=== PATIENT | female | born 1955 | race Caucasian/White ===

== ENCOUNTER → 2024-03-14 08:11 | Outpatient (REF) | payer OTHER, SELFPAY | LOC: HWRAD 08:11 | PROVIDERS: ATTENDING PHYSICIAN Obstetrics & Gynecology; FAMILY PHYSICIAN Family Medicine | DX: Z78.0 Asymptomatic menopausal state (principal); Z12.31 Encounter for screening mammogram for malignant neoplasm of breast | CPT/HCPCS: 77063; 77067; 77080 ==

== ENCOUNTER → 2024-09-17 15:52 | Outpatient (REF) | payer OTHER, SELFPAY | LOC: HWRCS 15:52 | PROVIDERS: ATTENDING PHYSICIAN Internal Medicine Cardiovascular Disease; FAMILY PHYSICIAN Family Medicine | DX: I35.1 Nonrheumatic aortic (valve) insufficiency (principal); I34.0 Nonrheumatic mitral (valve) insufficiency | CPT/HCPCS: 93306 ==

== ENCOUNTER → 2025-08-19 13:08 | Outpatient (REF) | payer OTHER, SELFPAY | LOC: HWWDC 13:08 | PROVIDERS: ATTENDING PHYSICIAN Obstetrics & Gynecology; FAMILY PHYSICIAN Nurse Practitioner Family | DX: Z12.31 Encounter for screening mammogram for malignant neoplasm of breast (principal) | CPT/HCPCS: 77063; 77067 ==

== ENCOUNTER 2025-09-29 12:38 | Emergency (ER) | payer OTHER, SELFPAY ==
[2025-09-29 13:04] VITALS: BP 149/80
[2025-09-29 13:24] LABS: Hematocrit 35.1 % (37.0-47.0); Hemoglobin 11.5 g/dL (12.0-16.0); Mean Corp Hgb Conc. 32.8 g/dL (33.0-37.0); Mean Corpuscular Volume 91.6 fL (81.0-99.0); Nucleated Red Blood Cells % 0 %; Platelet Count 205 10^3/uL (130-400); Red Cell Dist. Width 12.3 % (11.5-14.5)
[2025-09-29 13:32] LABS: INR 1.08; PT 14.1 Sec (11.4-14.6)
[2025-09-29 13:38] LABS: ALT (SGPT) 23 U/L (0-35); AST (SGOT) 24 U/L (14-36); Albumin 4.4 g/dl (3.5-5.0); Alkaline Phosphatase 65 U/L (38-126); Blood Urea Nitrogen 25 mg/dl (7-17); Calcium 9.6 mg/dl (8.4-10.2); Carbon Dioxide 29 mmol/L (22-30); Chloride 104 mmol/L (98-107); Glucose 99 mg/dl (70-99); Potassium 4.4 mmol/L (3.5-5.1); Sodium 136 mmol/L (135-145); Total Protein 7.4 g/dl (6.3-8.2); eGFR > 60.00
[2025-09-29 13:50] LABS: Troponin I 0.013 ng/ml
--- NOTE | 2025-09-29 16:10 | ED.GENMED ---
History of Present Illness
General
Chief Complaint: Heart Rate Problem
Source: patient
Time Seen by Provider: 09/29/25 15:43
History of Present Illness
History of Present Illness:
69-year-old female presenting to the emergency department for evaluation of some intermittent chest discomfort and palpitations that been ongoing for the last week, also noticed some slight exertional dyspnea today but states that she had to go back
out to her car while in the ER waiting room and she did not have any of the symptoms and is presently asymptomatic. She denies any cough, fevers or recent illnesses, lower extremity edema, abdominal pain, nausea or vomiting. She states due to her
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 Patient does not take any anticoagulant medications. She does note that she does wear an
estradiol patch as part of menopause. She notes that the dosage had been decreased over the last year or so.
Past History
Past History
ED Past Medical History: GERD and Valvular disease
ED Past Surgical History:
Social History
Tobacco: Non-smoker
Alcohol: None
Drug: None
Personal:
Living: with family
Review of Systems
Review of Systems
All Other Systems: ROS reviewed and negative except as documented in HPI and ROS
Phy Exam
Physical Exam
Physical Exam:
GENERAL: Alert , in no apparent distress
EYE: clear conjunctiva b/l
HEAD: NCAT
ENT: o/p clr, mmm.
CARDIAC: Regular rate and rhythm, faint murmur at apex .
LUNGS: Clear breath sounds bilaterally, no acute respiratory distress, no wheezes/rales/rhonchi
ABDOMEN: Soft, without focal tenderness, no r/g, no cvat
NEUROLOGICAL: Alert and oriented
SKIN: Warm and dry, skin intact.
MUSCULOSKELETAL: No edema, well perfused.
PSYCH: Normal and appropriate interaction.
Scores
Heart Failure Risk
Heart Failure Risk Score: Not Applicable
Heart Score for Chest Pain Patients
STEMI patient?: No
History: Slightly or Non-Suspicious
ECG: Normal
Age: >/= 65 years
Risk Factors: No Risk Factors
Troponin: </= Normal Limit
Heart Score for Chest Pain Patients: 2
Heart Score Risk: 2.5% MACE over next 6 weeks
Withdrawal Assessment of Alcohol
Withdrawal Assessment Completed?: Not applicable
Course
Orders/Labs/Results
Orders:
Orders
09/29/25 12:40
EKG [Electrocardiogram (*1)] Urgent
Reason for Study: Palpitations
09/29/25 12:41
EKG- Treatment ONCE
09/29/25 13:04
CR Chest - 2 Views Urgent
Comment:
Reason For Exam: chest pain
09/29/25 13:15
Complete Blood Count/With Diff Urgent
Comprehensive Metabolic Panel Urgent
Prothrombin Time Urgent
TSH Reflex To Free T4 Urgent
Troponin I Urgent
09/29/25 15:53
D-Dimer Urgent
Troponin I Urgent
Abnormal Lab Results
09/29/25
13:15
RBC 3.83 L 10^6/uL
(4.20-5.40)
Hgb 11.5 L g/dL
(12.0-16.0)
Hct 35.1 L %
(37.0-47.0)
MCHC 32.8 L g/dL
(33.0-37.0)
MPV 10.6 H fL
(7.4-10.4)
Lymphocytes % 16.0 L %
(20.5-51.1)
BUN 25 H mg/dl
(7-17)
09/29/25 13:15
09/29/25 13:15
Vital Signs
Initial and Last Documented VS:
Initial Vital Signs
Temp Pulse Resp BP Pulse Ox
97.8 F 72 17 149/80 97
09/29/25 13:04 09/29/25 13:04 09/29/25 13:04 09/29/25 13:04 09/29/25 13:04
Last Documented Vital Signs
Temp Pulse Resp BP Pulse Ox
97.8 F 78 18 140/72 99
09/29/25 13:04 09/29/25 16:50 09/29/25 16:50 09/29/25 16:50 09/29/25 16:50
MDM/Problems Addressed
Differential Diagnosis Includes:
Valvular dysfunction
Arrhythmia
ACS/Angina
PE
Thyroid dysfunction
Electrolyte imbalance
MDM/Problems Addressed:
69-year-old female presenting to the ER for evaluation of palpitations, discomfort in her chest and shortness of breath, symptoms ongoing for about 1 week. Patient with history of mitral regurgitation, follows with cardiology but has not been seen
in in around 1 year. Workup had been initiated in triage with labs all reassuring. Will repeat a troponin as well as I did add on a D-dimer to patient's workup due to her being on hormone replacement therapy. Disposition pending.
Chronic conditions affecting care: Other (Valvular dysfunction)
*Radiology
Radiology exam reviewed: radiology read reviewed
*Pulse Oximetry
SaO2: 97
Oxygen Mode of Delivery: Room air
Patient hypoxic: no
*EKG
Heart Rate: 64
Rate: normal
Rhythm: sinus
Ischemia: no ischemia
*Critical Care Note
Total Time (30-74mins, 75-104mins- exclusive of procedures): Not Applicable
Data Reviewed
Review of Other/Old Records Reveals: Records, Radiology Studies and Testing
Comment
Comment:
Last echocardiogram from September 17, 2024
CONCLUSIONS
Normal biventricular size and systolic function without regional wall motion
abnormality. LVEF 55-60%.
Mild to moderate mitral regurgitation.
Moderate aortic regurgitation.
Moderate tricuspid regurgitation. Top normal pulmonary artery pressure (PASP
35 mmHg).
Patient Management
Escalation/DeEscalation of care consider admission/obs:
Patient's D-dimer and troponin are within normal limits. She remains hemodynamically stable. Will notify chest pain hotline to help expedite outpatient follow-up. Patient aware of return precautions to the ER.
ED Attending Note
-
Portions of this chart may have been created with voice recognition software.� Occasional wrong word or��sound alike� substitutions may have occurred due to the inherent limitations of voice recognition software.
Discharge Plan
Departure
Patient Disposition: Home (Routine Discharge)
Date of Disposition: 09/29/25
Time of Disposition: 16:35
Patient with high blood pressure during this ER visit?: Yes
Discharge Problem:
Palpitations, Chest pain
Instructions: Chest Pain CBC Follow Up
Interventions
Interventions:
*General Assessment Last Done: 09/29/25 13:06
*Neglect/Abuse Screening Last Done: 09/29/25 13:06
*ED COVID-19 Vaccine History Last Done: 09/29/25 13:06
*ED Influenza Vaccine History Last Done: 09/29/25 13:06
*Risk Screen - Suicide (C-SSRS) Last Done: 09/29/25 13:06
*Nursing Disposition Last Done: 09/29/25 16:51
ED- Cardiac Assessment Last Done: 09/29/25 15:54
ED- Pulmonary Assessment Last Done: 09/29/25 15:54
Discharge Date and Time
Discharge Date/Time: 09/29/25 16:52
Print Language: LEBANESE
[2025-09-29 16:11] LABS: D-Dimer 0.44 ug/mlFEU (0.00-0.50)
[2025-09-29 16:27] LABS: Troponin I 0.016 ng/ml
[2025-09-29 16:50] VITALS: BP 140/72
== END 2025-09-29 16:52 | disposition home or self-care (01) ==
LOC: EMR 12:38
PROVIDERS: Emergency Medicine; Physician Assistant Medical; EMERGENCY PHYSICIAN Emergency Medicine; FAMILY PHYSICIAN Family Medicine
DX: R00.2 Palpitations (principal); R07.89 Other chest pain; I08.3 Combined rheumatic disorders of mitral, aortic and tricuspid valves; Z78.0 Asymptomatic menopausal state; Z79.890 Hormone replacement therapy
CPT/HCPCS: 99285; 71046; 80053; 84439; 84443; 84484; 85025; 85379; 85610; 93005

== ENCOUNTER → 2025-10-13 11:37 | Outpatient (REF) | payer OTHER, SELFPAY | LOC: HWRCS 11:37 | PROVIDERS: ATTENDING PHYSICIAN Nurse Practitioner Gerontology; FAMILY PHYSICIAN Family Medicine | DX: R07.9 Chest pain, unspecified (principal); R94.31 Abnormal electrocardiogram [ECG] [EKG] | CPT/HCPCS: 78452; 93017; A9500 ==